=== PATIENT | male | born 1995 | race Caucasian/White ===

== ENCOUNTER 2018-08-29 09:07 | Emergency (ER) | payer BC ==
--- NOTE | 2018-08-29 18:52 | RAD ---
RIGHT FOOT THREE VIEWS: 08/29/18 There is soft tissue swelling in the forefoot, but no fracture was appreciated at this time. All bone s appear intact. IMPRESSION: No acute bony findings. POS: HOME
== END 2018-08-29 09:45 | disposition home or self-care (01) ==
LOC: BURERS 09:07
DX: S90.31XA Contusion of right foot, initial encounter (principal); J45.909 Unspecified asthma, uncomplicated; W55.22XA Struck by cow, initial encounter